=== PATIENT | female | born 1980 | race Two or more races ===

== ENCOUNTER 2019-11-21 08:47 | Emergency (ER) | payer MEDICAID, OTHER ==
[~2019-11-21] VITALS: Ht 160 cm; Wt 61.2 kg
[2019-11-21 08:57] VITALS: BP 115/67
== END 2019-11-21 09:58 | disposition home or self-care (01) ==
LOC: ER 08:47
DX: S06.9X9A Unspecified intracranial injury with loss of consciousness of unspecified duration, initial encounter (principal); S00.03XA Contusion of scalp, initial encounter; W18.00XA Striking against unspecified object with subsequent fall, initial encounter; Y93.E1 Activity, personal bathing and showering; Y92.091 Bathroom in other non-institutional residence as the place of occurrence of the external cause; Y99.8 Other external cause status
CPT/HCPCS: 70450